=== PATIENT | male | born 1930 | race Caucasian/White ===

== ENCOUNTER 2017-09-27 11:00 | Emergency (ER) | payer MEDICARE, BC ==
[2017-09-27 11:16] VITALS: TEMP 97.2
[2017-09-27] MEDS ORDERED: ASPIRIN 81 MG CHEWABLE CTB PO ONE (11:17)
[2017-09-27] MEDS ORDERED: SODIUM CHLORIDE 0.9% FLUSH 10 ML SOL IV PRN (11:17)
[2017-09-27] MEDS ORDERED: NITROGLYCERIN 0.4 MG TAB SL PRN (11:17)
[2017-09-27] MEDS ORDERED: ASPIRIN 81 MG CHEWABLE CTB ONE (11:18)
[2017-09-27] MEDS ORDERED: NITROGLYCERIN 0.4 MG TAB SL ONE (11:18)
[2017-09-27 11:26] LABS: BASOPHILS % (AUTO) 1 % (0-3); EOSINOPHILS % (AUTO) 1 % (0-9); HEMATOCRIT 46 % (39-53); MEAN CORPUSCULAR HGB CONC 35.4 gm/dl (32.0-36.0); MEAN CORPUSCULAR VOLUME 87 fL (80-100); MONOCYTES % (AUTO) 7.7 % (0-12); NEUTROPHILS % (AUTO) 79.6 % (37-80)
[2017-09-27] MEDS ORDERED: ALUMINUM/MAGNESIUM 30 ML SUS PO ONE (11:27)
[2017-09-27] MEDS ORDERED: LIDOCAINE HCL 2% (VISCOUS) 20 ML SOL MT ONE (11:27)
[2017-09-27] MEDS ORDERED: LIDOCAINE HCL 2% (VISCOUS) 20 ML SOL ONE (11:29)
[2017-09-27] MEDS ORDERED: ALUMINUM/MAGNESIUM 30 ML SUS ONE (11:29)
[2017-09-27 11:39] LABS: CALCIUM 8.9 mg/dl (8.5-10.1); GLOM FILT RATE 36 mL/min (>60); POTASSIUM 5.3 mMol/L (3.5-5.1); SODIUM 135 mMol/L (136-145)
[2017-09-27] MEDS ORDERED: LACTATED RINGERS 1,000 ML IV ONE (11:51)
[2017-09-27] MEDS ORDERED: SODIUM POLYSTYRENE SULFONATE 15 GM/60 ML SUS PO ONE ×2 (11:51→12:05)
[2017-09-27] MEDS ORDERED: SODIUM POLYSTYRENE SULFONATE 15 GM/60 ML SUS ONE (11:56)
[2017-09-27 13:06] VITALS: RESP 20
[2017-09-27 13:26] LABS: CALCIUM 8.9 mg/dl (8.5-10.1); POTASSIUM 5.8 mMol/L (3.5-5.1)
[2017-09-27] MEDS ORDERED: ALBUTEROL NEB SOL 2.5MG/3ML 1 VIAL SOL NEB ONE (13:51)
[2017-09-27] MEDS ORDERED: FUROSEMIDE 40 MG SOL IV ONE (13:51)
[2017-09-27] MEDS ORDERED: DEXTROSE 50% 1 VIAL SOL IV ONE ×2 (13:52→13:55)
[2017-09-27] MEDS ORDERED: INSULIN HUMAN REGULAR 100 U/ML SOL IV ONE (13:52)
[2017-09-27] MEDS ORDERED: [UNRECOGNIZED DRUG - OTHER] IV ONE (13:52)
[2017-09-27] MEDS ORDERED: DEXTROSE IV ONE (13:52)
[2017-09-27] MEDS ORDERED: ALBUTEROL NEB SOL 2.5MG/3ML 1 VIAL SOL ONE (13:54)
[2017-09-27] MEDS ORDERED: FUROSEMIDE 40 MG SOL ONE (13:55)
[2017-09-27] MEDS ORDERED: INSULIN HUMAN REGULAR 100 U/ML SOL ONE (13:57)
[2017-09-27 16:08] LABS: POTASSIUM 4.1 mMol/L (3.5-5.1)
[2017-09-27 16:49] VITALS: BP 115/67; PULSE 93; O2SAT 99
== END 2017-09-27 16:39 | disposition home or self-care (01) | DRG 313 ==
LOC: ED 11:00
DX: R07.89 Other chest pain (principal); R06.00 Dyspnea, unspecified; E87.5 Hyperkalemia; E87.1 Hypo-osmolality and hyponatremia; E11.9 Type 2 diabetes mellitus without complications; N18.3 Chronic kidney disease, stage 3 (moderate); Z79.4 Long term (current) use of insulin
CPT/HCPCS: 36415; 71046; 71100; 80048; 82565; 82962; 83880; 84132; 84484; 85025; 85610; 93005; 96365; 96366; 96374; 96375; 99284; 99285; J1815; J1940; J7603; A9270-GY